=== PATIENT | female | born 1960 | race African-American/Black ===

== ENCOUNTER 2022-07-26 19:13 | Inpatient (IN) | payer BC ==
[~2022-07-26] VITALS: Ht 162.6 cm; Wt 75.9 kg
[2022-07-26] MEDS ORDERED: ASPIRIN 81MG TABLET PO ONE (22:30)
[2022-07-26] MEDS ORDERED: NITROGLYCERIN 0.4MG TABLET SL SL PRN (22:30)
[2022-07-26] MEDS ORDERED: FAMOTIDINE 20MG TABLET PO ONE (22:45)
[2022-07-26] MEDS ORDERED: VISCOUS LIDOCAINE 2% 15 ML UDC PO ONE (22:45)
[2022-07-26] MEDS ORDERED: MAGNESIUM/ALUMINUM HYDROXIDE/SIMETHICONE 30ML UDC PO ONE (22:45)
[2022-07-27 00:40] LABS: BASOPHILS % 0.5 % (0.0-2.0); HEMATOCRIT. 33.1 % (36.0-48.0); HEMOGLOBIN. 11.4 g/dL (12.0-16.0); MEAN CORPUSCULAR HEMOGLOBIN 27.7 pg (28.0-32.0); MEAN CORPUSCULAR VOLUME 80.2 fL (81.0-99.0); MEAN PLATELET VOLUME 9.9 fl (7.4-10.4); MONOCYTES % 5.4 % (2.0-8.0); NEUTROPHILS % 65.1 % (40.0-76.0); PLATELET 145 x1000/uL (130-400); RED BLOOD CELL COUNT 4.12 mill/uL (4.2-5.4); RED CELL DISTRIBUTION WIDTH 16.7 % (11.6-14.6)
[2022-07-27 00:48] LABS: CHLORIDE 103 mEq/L (98-107)
[2022-07-27] MEDS ORDERED: MAGNESIUM/ALUMINUM HYDROXIDE/SIMETHICONE 30ML UDC PO NR (01:45)
[2022-07-27] MEDS ORDERED: VISCOUS LIDOCAINE 2% 15 ML UDC PO NR (01:45)
[2022-07-27] MEDS ORDERED: FAMOTIDINE 20MG TABLET PO NR (01:45)
[2022-07-27] MEDS ORDERED: CLONIDINE 0.1MG TABLET PO PRN (05:00)
[2022-07-27] MEDS ORDERED: IPRATROPIUM/ALBUTEROL 0.5-3(2.5)MG/3ML NEB HHN PRN (05:00)
[2022-07-27] MEDS ORDERED: MAGNESIUM/ALUMINUM HYDROXIDE/SIMETHICONE 30ML UDC PO PRN (05:00)
[2022-07-27] MEDS ORDERED: GUAIFENESIN 200MG/10ML SUGAR FREE UDC PO PRN (05:00)
[2022-07-27] MEDS ORDERED: ACETAMINOPHEN 325MG TABLET PO PRN (05:00)
[2022-07-27] MEDS ORDERED: ONDANSETRON HCL 4MG/2ML INJ IV PRN (05:00)
[2022-07-27] MEDS ORDERED: DOCUSATE SODIUM 100MG CAPSULE PO PRN (05:00)
[2022-07-27] MEDS ORDERED: ENOXAPARIN 80MG/0.8ML SYR SUBCUT NR (05:45)
[2022-07-27 05:47] LABS: D-DIMER 0.43 mg/L FEU (<0.50); INR 1.1; PROTHROMBIN TIME 11.3 sec (9.6-11.0)
[2022-07-27 05:57] LABS: PHOSPHORUS 3.2 mg/dL (2.5-4.9)
[2022-07-27 06:12] LABS: TOTAL IRON BINDING CAPACITY 302 ug/dL (250-450)
[2022-07-27 06:19] LABS: CREATINE KINASE 76 IU/L (26-192)
[2022-07-27 06:24] LABS: VITAMIN B12 SERUM 500 pg/mL (211-911)
[2022-07-27] MEDS ORDERED: ENOXAPARIN 80MG/0.8ML SYR SUBCUT SCH (06:30)
[2022-07-27] MEDS ORDERED: PANTOPRAZOLE SODIUM 40 MG/VIAL IV SCH (09:00)
[2022-07-27 10:17] VITALS: BP 131/77
[2022-07-27] MEDS ORDERED: ATORVASTATIN CALCIUM 40MG TABLET PO SCH (21:00)
== END 2022-07-27 10:16 | disposition left against medical advice (07) | DRG 311 ==
LOC: ER 19:13 → MICUSO 07-27 03:07 → EDBEDREQ 07-27 03:09 → EDBEDREQTM 07-27 03:09
PROVIDERS: ADMIT Internal Medicine; ATTEND Internal Medicine
DX: I24.8 Other forms of acute ischemic heart disease (principal); R73.9 Hyperglycemia, unspecified; D64.9 Anemia, unspecified; Z66 Do not resuscitate; I44.7 Left bundle-branch block, unspecified; R13.10 Dysphagia, unspecified; Z53.29 Procedure and treatment not carried out because of patient's decision for other reasons; Z88.6 Allergy status to analgesic agent; Z88.8 Allergy status to other drugs, medicaments and biological substances; Z85.819 Personal history of malignant neoplasm of unspecified site of lip, oral cavity, and pharynx
CPT/HCPCS: 36415; 71045; 80053; 82550; 82553; 82607; 82652; 82728; 83540; 83550; 83735; 83880; 84100; 84484; 85025; 85379; 93005; 93970; 99285; C9113; J1650